=== PATIENT | female | born 1995 | race Caucasian/White ===

== ENCOUNTER 2018-05-09 21:17 | Emergency (ER) | payer SELFPAY ==
--- NOTE | 2018-05-09 23:08 | ULT ---
PELVIC ULTRASOUND 05/09/18 HISTORY: Cramping pelvic pain. Beta HCG level not available. FINDINGS: Multiple transabdominal and endovaginal sonographic images of the pelvis are obtained. The uterus is retroflexed measuring 7.6 cm x 5.2 cm x 5.5 cm. there is a small fluid collection seen within the end ometrial canal with a mean sac diameter of 0.5 cm which would correspond to gestational age by ultras ound of 5 weeks and 2 days. No pole or yolk sac is visualized. Gestational age by the last mens trual period is 6 weeks and 2 days. The right ovary is not visualized. The left ovary has a normal sonographic appearance measuring 2.9 cm x 2.2 cm x 2.6 cm. Doppler evaluation with spectral analysis and color flow evaluation of the left ovary does demonstrat e arterial flow. No free fluid is seen in the cul-de-sac. Small Nabothian cyst is seen in the cervix. IMPRESSION: 1. Fluid collection within the endometrial canal. No pole or yolk sac is visualized. Findi ngs may be related to early intrauterine gestation. Correlation with quantitative beta HCG level is r ecommended, and followup ultrasound examination in one week is also suggested. Pseudogestational sac related to ectopic cannot be excluded based on this exam. 2. Nonvisualization of the right ovary. 3. Normal appearing left ovary. POS: ROGER
== END 2018-05-09 23:45 | disposition home or self-care (01) ==
LOC: ERS 21:17
DX: O20.0 Threatened abortion (principal)
CPT/HCPCS: 76856